=== PATIENT | male | born 1985 ===

== ENCOUNTER 2018-05-02 14:38 | Emergency (ER) | payer OTHER ==
[2018-05-02 15:03] VITALS: BP 116/67
--- NOTE | 2018-05-02 15:31 | ED ---
Headache - HPI Summary HPI Summary: The pt is a 32 y/o male presenting to c/o a temporal CALDWELL for the last 4 days worse during the night. The pain is rated 4/10 in severity. He took a [place] antibiotic to no relief. He notes fever, mild neck pain, diaphoresis, rash on LUE and bilateral LE (2 days ago), ear itchiness, chest congestion, nausea, and loss of appetite. He denies back pain, sore throat, cough, abd pain, diarrhea, dysuria, ear pain. - History Of Current Complaint Chief Complaint: UCHeadache Stated Complaint: HEADACHE Time Seen by Provider: 05/02/18 15:19 Hx Obtained From: Patient, Family/Radiographer Angiogram - Onset/Duration: Started days ago - 4 days ago, Still Present Currently Pain Is: Current Pain Scale(0-10)= - 4/10, Mild Timing: Constant Location of Headache: Parietal Allevating Factors: Nothing Associated Signs And Symptoms: Negative - back pain, sore throat, cough, abd pain, diarrhea, dysuria, ear pain., Nausea, Fever, Neck Pain - Mild, Other ( Noted In Comments) - diaphoresis, rash on LUE and bilateral LE (2 days ago), ear itchiness, chest congestion, and loss of appetite - Allergies/Home Medications Allergies/Adverse Reactions: Allergies Allergy/AdvReac Type Severity Reaction Status Date / Time No Known Allergies Allergy Verified 05/02/18 15:03 Home Medications: Home Medications Chinease Abx 1 05/02/18 [History] PMH/Surg Hx/FS Hx/Imm Hx Previously Healthy: Yes - Denies a hx of HTN, NH, DM and CA Infectious Disease History: No Infectious Disease History: Denies: Traveled Outside the [place] in Last 30 Days - Family History Known Family History: Positive: Cardiac Disease, Hypertension - Social History Occupation: Employed Full-time Lives: With Family Alcohol Use: None Substance Use Type: Reports: None Smoking Status (MU): Light Every Day Tobacco Smoker Type: Cigarettes Review of Systems Positive: Fever, Skin Diaphoresis Positive: Other - Positive: mild naeck pain, ear itchiness. Negative: Sore Throat, Ear Ache Positive: Other - Positive: Chest congestion, Positive: Nausea, Other - Postive: loss of appetite . Negative: Abdominal Pain , Diarrhea Negative: dysuria Musculoskeletal: Negative - Back pain All Other Systems Reviewed And Are Negative: Yes Physical Exam - Summary Physical Exam Summary: General: well-appearing, no pain distress Skin: warm, color reflects adequate perfusion, dry Head: normal; the patient is able to bring his chin to his chest and is able to extend his head and neck without any pain. Eyes: EOMI, CAROLYN ENT: normal Neck: supple, nontender Respiratory: CTA, breath sounds present Cardiovascular: RRR Abdomen: soft, nontender Bowel: present Musculoskeletal: normal, strength/ROM intact Neurological: sensory/motor intact, A&O x3 Psychological: affect/mood appropriate Triage Information Reviewed: Yes Vital Signs On Initial Exam: Initial Vitals Temp Pulse Resp BP Pulse Ox 99.9 F 101 18 116/67 98 05/02/18 14:57 05/02/18 14:57 05/02/18 14:57 05/02/18 14:57 05/02/18 14:57 Vital Signs Reviewed: Yes Diagnostics - Vital Signs Vital Signs Temp Pulse Resp BP Pulse Ox 05/02/18 14:57 99.9 F 101 18 116/67 98 - Laboratory Lab Statement: Any lab studies that have been ordered have been reviewed, and results considered in the medical decision making process. Headache Course/Dx - Course Course Of Treatment: NO CLINICAL SIGNS OF MENINGITIS AT THIS TIME. LABS PENDING. RX DOXY. DISCUSSED IF SX WORSEN; HEADACHE WORSE, NECK STIFFNESS, FEELING ILL, THESE COULD BE A SIGN OF MENINGITIS AND TO BE EVALUATED IN THE EMERGENCY DEPARTMENT. F/U PMD; RECHECK SOONER WITH ANY CONCERNS. - Diagnoses Provider Diagnoses: Headache, Fever Discharge - Sign-Out/Discharge Documenting (check all that apply): Patient Departure All imaging exams completed and their final reports reviewed: No Studies - Discharge Plan Condition: Stable Disposition: HOME Prescriptions: DOXYcycline CAP(*) [DOXYcycline 100MG CAP(*)] 100 mg PO BID #28 cap Patient Education Materials: Fever in Adults (ED), Acute Headache (ED) Referrals: [facility] [place] [facility] [place] [facility] [Outside] Additional Instructions: FOLLOW UP WITH YOUR DOCTOR. GO TO THE EMERGENCY DEPARTMENT FOR ANY WORSENING OF YOUR CONDITION; HEADACHE, FEVER, STIFF NECK, YOU FEEL ILL OR QUESTIONS OR CONCERNS. - Billing Disposition and Condition Condition: STABLE Disposition: Home - Attestation Statements Document Initiated by Scribe: Yes Documenting Scribe: Virginia Perkins Provider For Whom Scribe is Documenting (Include Credential): Dr. Jeff Jean-Baptiste MD Scribe Attestation: IVirginia , scribed for Dr. Jeff Jean-Baptiste MD on 05/02/18 at [facility]. Scribe Documentation Reviewed: Yes Provider Attestation: The documentation as recorded by the vivianibeVirginia accurately reflects the service I personally performed and the decisions made by me, Dr. Jeff Jean-Baptiste MD
[2018-05-02 18:49] LABS: Hematocrit 40 % (42-52); Mean Corpuscular HGB Conc 36 g/dl (31-36); Mean Corpuscular Hemoglobin 30 pg (27-31); Mean Corpuscular Volume 86 fL (80-94); Mean Platelet Volume 8.5 um3 (7.4-10.4); Platelet Count 145 10^3/ul (150-450); Red Blood Count 4.62 10^6/ul (4.00-5.40); Red Cell Distribution Width 12 % (10.5-15); White Blood Count 8.2 10^3/ul (3.5-10.8)
[2018-05-02 19:05] LABS: EGFR Non-African American 94.2 (>60)
[2018-05-02 20:12] LABS: ABS Basophils 0.1 10^3/ul (0-0.2); ABS Eosinophils 0.2 10^3/ul (0-0.6); ABS Lymphocytes 4.7 10^3/ul (1.0-4.8); ABS Monocytes 0.9 10^3/ul (0-0.8); ABS Neutrophils 2.5 10^3/ul (1.5-7.7)
[2018-05-02 20:18] LABS: ABS Basophils 0.1 10^3/ul (0-0.2); ABS Neutrophils 1.7 10^3/ul (1.5-7.7); Monocytes % 19 % (0-7)
== END 2018-05-02 16:18 | disposition home or self-care (01) ==
LOC: UCEAST 14:38
DX: R51 Headache (principal); R50.9 Fever, unspecified; F17.210 Nicotine dependence, cigarettes, uncomplicated
CPT/HCPCS: 36415; 80053; 85025; 85060; 86140; 86308; 86617; 86618; 99201; G0463